=== PATIENT | male | born 1935 | race Caucasian/White ===

== ENCOUNTER → 2017-06-11 | Outpatient (CLI) | payer MEDICARE, OTHER ==
[2017-06-11 14:01] LABS: THYROID STIM HORMONE (TSH) 3.661 uIU/mL (0.358-3.740)
== END | disposition home or self-care (01) ==
LOC: LAB 07:21
PROVIDERS: ATTEND Family Medicine
DX: E78.5 Hyperlipidemia, unspecified (principal); E03.9 Hypothyroidism, unspecified
CPT/HCPCS: 80061; 84443

== ENCOUNTER → 2020-07-22 | Outpatient (CLI) | payer MEDICARE, OTHER ==
--- NOTE | 2020-07-22 17:19 | RAD ---
Site ID: [id number] EXAMINATION: XR EXAM OF ANKLE_RIGHT 2 VIEWS, XR RT TIBIA+FIBULA . HISTORY: 84 years Male Reason: RIGHT ANKLE PAIN AFTER INJURY TODAY / Spl. Instructions: / History: . COMPARISON: None. FINDINGS: No fracture, dislocation or radiopaque foreign body seen in 2 views of the right ankle and 2 views of the right tibia and fibula. The joint spaces and articular surfaces appear unremarkable. IMPRESSION: Unremarkable exam. Electronically signed by: Nelson Can MD (07/22/2020 5:16 PM) [id number]
== END ==
LOC: DXRAD 16:46
PROVIDERS: ATTEND Nurse Practitioner Family
DX: M25.571 Pain in right ankle and joints of right foot (principal); M79.604 Pain in right leg
CPT/HCPCS: 73590; 73600